=== PATIENT | male | born 1955 | race Caucasian/White ===

== ENCOUNTER 2017-10-19 06:47 | Day surgery (SDC) | payer MEDICARE ==
[2017-10-19 08:07] VITALS: BMI 29.0
[2017-10-19 10:46] VITALS: TEMP 98.6
[2017-10-19 11:30] VITALS: BP 138/76; PULSE 64
== END 2017-10-19 11:25 | disposition home or self-care (01) ==
LOC: FASU 06:47
PROVIDERS: ATTEND Ophthalmology
PROC: 08RJ3JZ Replacement of Right Lens with Synthetic Substitute, Percutaneous Approach (ICD-10-PCS; principal; 2017-10-19)
DX: H25.041 Posterior subcapsular polar age-related cataract, right eye (principal)
CPT/HCPCS: 82962